=== PATIENT | female | born 1950 | race Caucasian/White ===

== ENCOUNTER → 2017-02-09 | Outpatient (CLI) | payer MEDICARE, BC ==
[2017-02-09 08:39] LABS: EKG EKG PERFORMED
[2017-02-09 09:33] LABS: Anion Gap 7 mmol/L; Blood Urea Nitrogen 12 mg/dL (7-17); Carbon Dioxide 27 mmol/L (22-30); Chloride 107 mmol/L (98-107); Non-African American GFR(MDRD) >60 (>60 ml/min/1.73 sqM); Potassium 4.7 mmol/L (3.5-5.1); Sodium 141 mmol/L (137-145)
[2017-02-09 09:40] LABS: Basophils # (A) 0.1 k/uL (0-0.2); Basophils % (A) 1 %; CH 30.9; CHCM 32.4; Eosinophils # (A) 0.1 k/uL (0-0.7); Eosinophils % (A) 2 %; HCT 44.5 % (34.0-46.0); HDW 2.37; Luc # (Auto) 0.15; Luc % (Auto) 3; Lymphocytes # (A) 1.5 k/uL (1.0-4.8); Lymphocytes % (A) 29 %; MCH 30.2 pg (25.0-35.0); MCHC 31.5 g/dL (31.0-37.0); MCV 95.9 fL (80.0-100.0); Mean Platelet Volume 7.1; Monocytes # (A) 0.3 k/uL (0-1.0); Monocytes % (A) 6 %; Neutrophils % (A) 59 %; RBC 4.64 m/uL (3.80-5.40); RDW 13.6 % (11.5-15.5); WBC (Perox) 4.99
== END | disposition home or self-care (01) ==
LOC: LABPAT 08:10
PROVIDERS: ATTEND Obstetrics & Gynecology
DX: Z01.810 Encounter for preprocedural cardiovascular examination (principal); Z01.812 Encounter for preprocedural laboratory examination
CPT/HCPCS: 80051; 82565; 84520; 85025; 86850; 86900; 86901; 87086; 93005

== ENCOUNTER 2017-02-16 06:02 | Day surgery (SDC) | payer MEDICARE, BC ==
[2017-02-12 12:45] VITALS: BMI 28.3
[~2017-02-16 06:02] MED LIST: CLINDAMYCIN 900 MG in DEXTROSE 5% IN WATER 50 ML IVPB ONE; DEXAMETHASONE SOD PHOSPHATE 10 MG/ML 1 ML VIAL IV ONE; HYDROmorphone 1 MG/ML 1 ML SYRINGE IVP PRN; MIDAZOLAM 2 MG/2 ML VIAL IV PRN; ONDANSETRON 4 MG/2 ML VIAL IVP ONE
[2017-02-16] MEDS ORDERED: LIDOCAINE 1% 20 ML VIAL (10MG/ML) FOR IV START INTRADERMA ONE (06:50)
[2017-02-16] MEDS: LACTATED RINGERS 1,000 ML IV SCH (06:55)
[2017-02-16] MEDS ORDERED: MORPHINE SULFATE (PF) 0.3 MG/0.3 ML SYR ONE (07:21)
[2017-02-16] MEDS ORDERED: PHENYLEPHRINE-0.9% NACL SYG 1 MG/10 ML SYRINGE ONE (07:21)
[2017-02-16] MEDS ORDERED: fentaNYL (PF) 50 MCG/ML 2 ML AMP ONE (07:21)
[2017-02-16] MEDS ORDERED: PROPOFOL 10 MG/ML 20 ML VIAL IV ONE (07:21)
[2017-02-16] MEDS ORDERED: MIDAZOLAM 2 MG/2 ML VIAL ONE (07:21)
[2017-02-16] MEDS ORDERED: LIDOCAINE 1% INJ 10MG/ML (20 ML MDV) ONE (07:21)
[2017-02-16] MEDS ORDERED: VASOPRESSIN 20 UNIT/ML 1 ML VIAL SQ ONE (07:39)
[2017-02-16] MEDS ORDERED: BACITRACIN 500 UNIT/GM OINT 28.4 GM TUBE TOPICAL ONE (07:42)
--- NOTE | 2017-02-16 08:22 | P.OP ---
Date of Procedure: 02/16/17 Preoperative Diagnosis: Symptomatic grade 3-4 cystocele, grade 2-3 rectocele. Postoperative Diagnosis: Same Procedure(s) Performed: Anterior and posterior colporrhaphy's Implants: Anesthesia: spinal Surgeon: Tiffany Reinoso Assurance Manager Insurance #1: Mort[employer] Figueroa Estimated Blood Loss (ml): 35 IV fluids (ml): 800 Urine output (ml): 100 Pathology: none sent Condition: stable Disposition: PACU Indications for Procedure: Operative Findings: Description of Procedure: Patient is brought to the operating suite where a spinal with Duramorph is administered without difficulty. She's placed in the dorsal lithotomy position. The vaginal vault as well as perineal bodies are all prepped and draped in usual sterile fashion. Clindamycin is given. Appropriate timeout is performed to assure the proper patient and procedural identification. The weighted speculum was placed into the vagina and the uterosacral cardinal ligament dimples are identified and grasped with Allis clamps. The bladder is drained for approximately 100 mL of clear yellow urine. An incision is made in the vaginal cuff between the 2 uterosacral ligaments. The mucosa is then injected with dilute Pitressin solution in the midline. Metzenbaum scissors are used to incise the mucosa to approximately 1-1/2 cm inferior to the urethra. Agustin catheter is then placed. The mucosa is held in a fanlike fashion bilaterally with Allis clamps. A sponge rolled finger is used to separate the underlying fascial plane from the overlying mucosa. When this is completed, 2-0 Vicryl suture is used in an interrupted fashion to bring the fascial edges together thereby completely reducing the cystocele. The redundant tissue was trimmed with Metzenbaum scissors. A 2-0 Vicryl sutures used in a running locking stitch to bring the mucosal edges together. Hemostasis is excellent. At this time Allis clamps are used on the perineal body. A triangular portion of tissue is removed. The posterior vaginal mucosa is now injected with dilute Pitressin in the midline. Metzenbaum scissors are used to incise this mucosa to the apex of the rectocele defect. The mucosa is again held in a fanlike fashion with Allis clamps, a sponge rolled finger is used to separate the underlying fascial plane from the overlying mucosal edges. 2-0 Vicryl is used in an interrupted fashion to bring the fascial edges together thereby completely reducing and removing the rectocele. Metzenbaum scissors are used to trim the redundant mucosa. 2-0 Vicryl is used again in a running locking stitch to repair the rectocele. An episiotomy-like procedure is carried out to complete the repair. The vagina is clean and dry. It is packed with one-inch iodophor gauze. Rectal exam reveals smooth close of, no sutures or defects. All sponge needle and enhancement counts are correct. Patient is brought back to recovery room in very good condition with stable vital signs including blood pressure 112/69, pulse 71.
[2017-02-16] MEDS ORDERED: ZOLPIDEM 5 MG TAB PO PRN (08:23)
[2017-02-16] MEDS ORDERED: KETOROLAC 30 MG/ML 1 ML VIAL IVP PRN (08:23)
[2017-02-16] MEDS ORDERED: IBUPROFEN 600 MG TAB PO PRN (08:23)
[2017-02-16] MEDS ORDERED: METOCLOPRAMIDE 5 MG/ML 2 ML VIAL IVP PRN (08:23)
[2017-02-16] MEDS ORDERED: ONDANSETRON 4 MG/2 ML VIAL IVP PRN ×2 (08:23→08:41)
[2017-02-16] MEDS ORDERED: SIMETHICONE 80 MG CHEWABLE PO PRN (08:23)
[2017-02-16] MEDS ORDERED: diphenhydrAMINE 50 MG/ML 1 ML VIAL IVP PRN (08:41)
[2017-02-16] MEDS ORDERED: NALOXONE 0.4 MG/ML 1 ML VIAL IV PRN (08:41)
[2017-02-16] MEDS ORDERED: MORPHINE SULFATE 4 MG/ML SYRINGE IVP PRN (08:41)
[2017-02-17] MEDS: LACTATED RINGERS 1,000 ML IV SCH (05:15)
--- NOTE | 2017-02-17 07:44 | P.DS ---
Providers Date of admission: 02/16/17 Expected date of discharge: 02/17/17 Attending physician: Tiffany Reinoso Primary care physician: [facility] Course: This is a 66-year-old white female who presented with an increasingly symptomatic grade 3-4 cystocele and grade 2-3 rectocele. She is status post hysterectomy and anterior colporrhaphy in the past. After thorough consultation , patient elected to proceed with surgical repair. Please see my dictated history and physical for details. Patient was admitted and underwent an anterior and posterior colporrhaphy under my care on 02/16/2017. She did very well intraoperatively, no complications were incurred. Please see my dictated operative note for details. Vagina was packed with iodoform gauze and Agustin catheter placed. She did well through the night, pain is very well controlled. Urine has been abundant and clear. Vaginal packing and Agustin catheter at this time had been removed. Vital signs are stable, she is afebrile, abdomen is soft and nontender, active bowel sounds , no CVA tenderness. Extremities are negative for edema. Bladder training has started at this time. I anticipate discharge home later today pending successful bladder training. Patient is being discharged home in very good condition. She will follow-up with me in the office in 2 weeks. I reminded her no intercourse, tampons or douching. She will use over-the- counter Aleve as needed for pain. I have reminded her no heavy lifting, no driving for 2 weeks. She will see me in the office as instructed. She will call with any fevers shakes or chills, bloody vaginal drainage, with any difficulties urinating, with any pain not alleviated by Aleve, or indeed with any concerns. Patient Condition at Discharge: Good Plan - Discharge Summary New Discharge Prescriptions: No Action No Known Home Medications [No Known Home Medications] Discharge Medication List No Known Home Medications [No Known Home Medications] 02/12/17 [History] Follow up Appointment(s)/Referral(s): Tiffany Reinoso MD [STAFF PHYSICIAN] - 2 Weeks Discharge Disposition: HOME SELF-CARE
[2017-02-17] MEDS ORDERED: ACETAMINOPHEN TAB 325 MG TAB PO PRN (08:24)
[2017-02-17 09:38] VITALS: RESP 16
[2017-02-17 13:43] VITALS: BP 129/75; PULSE 74; TEMP 97.6
== END 2017-02-17 12:56 | disposition home or self-care (01) ==
LOC: OR 06:02 → 6PED 08:20 → OR 02-17 12:56
PROVIDERS: ATTEND Obstetrics & Gynecology
DX: N81.10 Cystocele, unspecified (principal); N81.6 Rectocele; M85.80 Other specified disorders of bone density and structure, unspecified site; Z78.0 Asymptomatic menopausal state; F17.200 Nicotine dependence, unspecified, uncomplicated; Z79.899 Other long term (current) drug therapy; Z88.1 Allergy status to other antibiotic agents; Z88.0 Allergy status to penicillin; Z88.2 Allergy status to sulfonamides; Z88.5 Allergy status to narcotic agent
CPT/HCPCS: 86900; 86901; 86850; 57260; J1100; J2405

== ENCOUNTER → 2018-04-12 | Outpatient (CLI) | payer MEDICARE, BC ==
--- NOTE | 2018-04-14 12:37 | MM ---
Reason for exam: screening (asymptomatic). Last mammogram was performed 2 years and 7 months ago. History: Patient is postmenopausal. Family history of breast cancer in maternal aunt. Physical Findings: A clinical breast exam by your physician is recommended on an annual basis and results should be correlated with mammographic findings. MG 3D Screening Mammo W/Cad Bilateral CC, MLO, and XCCL view(s) were taken. Prior study comparison: September 17, 2015, bilateral MG screening mammo w CAD. January 15, 2014, mammogram, performed at [facility]. There are scattered fibroglandular densities. Finding: There are typically benign vascular, dystrophic calcifications in both breasts. There is no discrete abnormality. ASSESSMENT: Benign, BI-RAD 2 RECOMMENDATION: Routine screening mammogram of both breasts in 1 year.
== END | disposition home or self-care (01) ==
LOC: RADMAMWWP 09:23
PROVIDERS: ATTEND Family Medicine
DX: Z12.31 Encounter for screening mammogram for malignant neoplasm of breast (principal)
CPT/HCPCS: 77063; 77067